=== PATIENT | female | born 2000 | race Caucasian/White ===

== ENCOUNTER 2022-02-06 09:25 | Outpatient (CLI) | payer BC ==
[2022-02-06] MEDS ORDERED: Magnevist 469MG/ML 20 ML VIAL ONE (16:17)
== END 2022-02-06 09:26 | disposition home or self-care (01) ==
LOC: CSHMRI 09:25
PROVIDERS: ATTEND Family Medicine Sports Medicine
DX: G44.89 Other headache syndrome (principal)
CPT/HCPCS: 70553; A9579